=== PATIENT | female | born 1995 | race Caucasian/White ===

== ENCOUNTER 2019-06-08 21:24 | Emergency (ER) | payer SELFPAY ==
[~2019-06-08] VITALS: Ht 175.3 cm; Wt 99.8 kg
[2019-06-08 21:36] VITALS: BP 150/99
[2019-06-08] MEDS ORDERED: IPRATROPIUM BROM 0.5 MG/2.5ML INH SOL NEB ONE (21:45)
[2019-06-08] MEDS ORDERED: ALBUTEROL SULF 2.5 MG/0.5ML(0.5%) NEB SOLN NEB ONE (21:45)
== END 2019-06-09 03:20 | disposition left against medical advice (07) ==
LOC: ER 21:28
DX: J45.901 Unspecified asthma with (acute) exacerbation (principal); Z53.21 Procedure and treatment not carried out due to patient leaving prior to being seen by health care provider
CPT/HCPCS: 94640; 99281; J7611; J7644